=== PATIENT | male | born 1985 | race African-American/Black ===

== ENCOUNTER 2017-10-08 14:06 | Emergency (ER) | payer OTHER ==
[2017-10-08] MEDS ORDERED: HYDROCODONE/ACETAMINOPHEN 5-325 MG TABLET PO ONE (14:43)
--- NOTE | 2017-10-08 14:50 | ER Document Report ---
ED General - General Chief Complaint: Testicular Pain Stated Complaint: GENITAL PAIN Time Seen by Provider: 10/08/17 14:43 Mode of Arrival: Ambulatory Information source: Patient Notes: 31 yr old male presents with complaints of left sided testicular pain since last night . pt denies any trauma, dysuria, discharge. Patient notes similar episode when he was 15 TRAVEL OUTSIDE OF THE [place] IN LAST 30 DAYS: No - HPI Onset: Yesterday Onset/Duration: Sudden Quality of pain: Achy Severity: Mild Pain Level: 1 Associated symptoms: Other Exacerbated by: Movement Relieved by: Denies Similar symptoms previously: Yes Recently seen / treated by doctor: No - Related Data Allergies/Adverse Reactions: No Known Allergies Allergy (Verified 10/08/17 14:08) Past Medical History - Social History Smoking Status: Never Smoker Cigarette use (# per day): No Chew tobacco use (# tins/day): No Smoking Education Provided: No Family History: Reviewed & Not Pertinent Review of Systems - Review of Systems Notes: REVIEW OF SYSTEMS: CONSTITUTIONAL : Denies fever, chills, or sweats. Denies recent illness. EENT: Denies eye, ear, throat, or mouth pain or symptoms. Denies nasal or sinus congestion or discharge. Denies throat, tongue, or mouth swelling or difficulty swallowing. CARDIOVASCULAR: Denies chest pain. Denies palpitations or racing or irregular heart beat. Denies ankle edema. RESPIRATORY: Denies cough, cold, or chest congestion. Denies shortness of breath, difficulty breathing, or wheezing. GASTROINTESTINAL: Denies abdominal pain or distention. Denies nausea, vomiting , or diarrhea. Denies blood in vomitus, stools, or per rectum. Denies black, tarry stools. Denies constipation. Left testicular pain GENITOURINARY: Denies difficulty urinating, painful urination, burning, frequency, blood in urine, or discharge. MUSCULOSKELETAL: Denies back or neck pain or stiffness. Denies joint pain or swelling. SKIN: Denies rash, lesions or sores. HEMATOLOGIC : Denies easy bruising or bleeding. LYMPHATIC: Denies swollen, enlarged glands. NEUROLOGICAL: Denies confusion or altered mental status. Denies passing out or loss of consciousness. Denies dizziness or lightheadedness. Denies headache. Denies weakness or paralysis or loss of use of either side. Denies problems with gait or speech. Denies sensory loss, numbness, or tingling. Denies seizures. PSYCHIATRIC: Denies anxiety or stress. Denies depression, suicidal ideation, or homicidal ideation. ALL OTHER SYSTEMS REVIEWED AND NEGATIVE. Dictation was performed using [employer] voice recognition software PHYSICAL EXAMINATION: GENERAL: Well-appearing, well-nourished and in no acute distress. HEAD: Atraumatic, normocephalic. EYES: Pupils equal round and reactive to light, extraocular movements intact, sclera anicteric, conjunctiva are normal. ENT: Nares patent, oropharynx clear without exudates. Moist mucous membranes. NECK: Normal range of motion, supple without lymphadenopathy LUNGS: Breath sounds clear to auscultation bilaterally and equal. No wheezes rales or rhonchi. HEART: Regular rate and rhythm without murmurs ABDOMEN: Soft, nontender, nondistended abdomen. No guarding, no rebound. No masses appreciated. Scrotal examination notes tenderness over the epididymis, cremaster reflexes were intact Musculoskeletal: Normal range of motion, no pitting or edema. No cyanosis. NEUROLOGICAL: Cranial nerves grossly intact. Normal speech, normal gait. Normal sensory, motor exams PSYCH: Normal mood, normal affect. SKIN: Warm, Dry, normal turgor, no rashes or lesions noted. Physical Exam - Vital signs Vitals: Temp Pulse Resp BP Pulse Ox 97.5 F 72 18 104/75 100 10/08/17 14:11 10/08/17 14:11 10/08/17 14:11 10/08/17 14:11 10/08/17 14:11 Course - Re-evaluation Re-evalutation: 10/08/17 14:50 u/s pending 10/08/17 20:18 Ultrasound findings were handed to the patient, his concerns of hypoechoic area which is not consistent with a torsion may be consistent with orchitis, patient will be started on antibiotics, there is also concerns of microliths with may be associated with tumors in the future, patient has been instructed that he must follow-up with urology as this could be a life-threatening issue. Patient states he understands and will follow up. Gonorrhea chlamydia was negative urinalysis otherwise was clean patient is stable for discharge After performing a Medical Screening Examination, I estimate there is LOW risk for ACUTE APPENDICITIS, BOWEL OBSTRUCTION, ACUTE CHOLECYSTITIS, PERFORATED DIVERTICULITIS, INCARCERATED HERNIA, PANCREATITIS, TESTICULAR TORSION or PERFORATED ULCER, thus I consider the discharge disposition reasonable. Also, there is no evidence or peritonitis, sepsis, or toxicity. I have reevaluated this patient multiple times and no significant life threatening changes are noted. The patient and I have discussed the diagnosis and risks, and we agree with discharging home with close follow-up with the understanding that symptoms and presentations can change. We also discussed returning to the Emergency Department immediately if new or worsening symptoms occur. We have discussed the symptoms which are most concerning (e.g., bloody stool, fever, changing or worsening pain, intractable vomiting - standard verbal up date) that necessitate immediate return. - Vital Signs Vital signs: Temp Pulse Resp BP Pulse Ox 98.1 F 71 16 106/65 98 10/08/17 17:13 10/08/17 17:13 10/08/17 17:13 10/08/17 17:13 10/08/17 17:13 - Laboratory Laboratory results interpreted by me: 10/08/17 14:29 Urine Urobilinogen 2.0 H - Diagnostic Test Radiology reviewed: Image reviewed, Reports reviewed - Report reviewed with both patient and radiologist Discharge - Discharge Clinical Impression: Testicular pain, Orchitis Condition: Stable Disposition: HOME, SELF-CARE Prescriptions: Hydrocodone/Acetaminophen [Muscoda 5-325 mg Tablet] 1 tab PO Q6 #10 tablet Levofloxacin [Levaquin 750 mg Tablet] 750 mg PO DAILY #14 tablet Forms: Return to Work Referrals: [facility] [Provider Group] - Follow up tomorrow [facility] [Provider Group] - Follow up tomorrow
[2017-10-08 15:16] LABS: APPEARANCE,URINE CLEAR; BILIRUBIN,URINE NEGATIVE (NEGATIVE); COLOR,URINE YELLOW; GLUCOSE, URINE NEGATIVE (NEGATIVE); KETONES,URINE NEGATIVE (NEGATIVE); LEUKOCYTE ESTERASE,URINE NEGATIVE (NEGATIVE); NITRITE,URINE NEGATIVE (NEGATIVE); PROTEIN,URINE NEGATIVE (NEGATIVE); URINE SPECIFIC GRAVITY 1.024
--- NOTE | 2017-10-08 16:13 | RADIOLOGY REPORT (SQ) ---
EXAM DESCRIPTION: U/S SCROTUM W/DOPPLER COMPLETED DATE/TIME: 10/08/2017 3:35 pm REASON FOR STUDY: testicular pain COMPARISON: None. TECHNIQUE: Static and realtime hernandez scale imaging of the scrotum and testes. Selected color Doppler and spectral images recorded to document blood flow. LIMITATIONS: None. FINDINGS: RIGHT: TESTICLE: The right testicle measures 3.8 x 2.7 x 1.9 cm. Testicular microlithiasis noted. Normal b lood flow. No mass. EPIDIDYMIS: The epididymis measures 0.7 x 0.7 x 0.5 cm. HYDROCELE OR VARICOCELE: No. HERNIA OR EXTRA-TESTICULAR MASS: No. LEFT: TESTICLE: The left testicle measures 3.8 x 2.7 x 2.1 cm. Testicular microlithiasis noted. Normal b lood flow. There is a focal area of decreased echogenicity noted in the upper pole of the left testi david. The possibility of changes secondary to posttraumatic change, edema secondary to orchiitis, or mass cannot be excluded. Follow-up would be indicated. EPIDIDYMIS: The epididymis measures 0.8 x 0.6 x 0.5 cm. HYDROCELE OR VARICOCELE: No. HERNIA OR EXTRA-TESTICULAR MASS: No. IMPRESSION: Vague area of decreased echogenicity within the superior left testicle. The possibility of posttraumatic change or focal edema secondary to orchiitis cannot be excluded . Follow-up is in dicated. Bilateral testicular microlithiasis. TECHNICAL DOCUMENTATION: JOB ID: [id number] [employer]- All Rights Reserved
[2017-10-08 16:54] LABS: CHLAM PCR NOT DETECTED (NOT DETECT); GON PCR NOT DETECTED (NOT DETECT)
[2017-10-08 17:13] VITALS: BP 106/65
== END 2017-10-08 17:19 | disposition home or self-care (01) ==
LOC: ER 14:06
DX: N45.2 Orchitis (principal); N50.812 Left testicular pain
CPT/HCPCS: 76870; 81001; 87491; 87591; 93976; 99284